=== PATIENT | female | born 1980 | race Caucasian/White ===

== ENCOUNTER 2017-09-12 21:20 | Emergency (ER) | payer MEDICAID ==
[2017-09-12 07:19] VITALS: BMI 33.7
--- NOTE | 2017-09-12 23:43 | OBHP ---
Datetime: 09/12/2017 22:43 IP Adm Impression: Term, intrauterine ; No Active Labor IP Chief Complaint Other: Second opinion IP Adm Impression Other: Previous C/S X2 IP Admit Plan: Observation/Evaluation; Discharge home Admit Comment, IP Provider: 36yo with IUP at 38.1wks( [facility] - 09/25/17) as per Dr Hammer who is he r primary OB practitioner. Pt reports here today c/o intermittent pelvic discomfort and also here to seek further treatment. She was seen earlier in the day at [facility] where she had been eric eduled for a repeat section for a previous c/s X2. According to Dr Hammer, in a phone conver sati, it was detected during the type and screen that Pt had abnormal yuliet antibodies '[place]. An esthesia recommended that a special blood for this antibody be made available before surgery so it ca n be used in the event of the need for emergency transfusion. The surgery was cancelled and the patient was apparently upset about this. Dr Hammer reports ythat she had sat patient down and explained the situation before discharging the patient, asking her to r violeta on 09/14/17, for reevaluation and scheduling. The special blood has also been ordered. Pt reports good movements, said she saw some bleeding after being checked today. TOCO: irregular, Q 8 - 9 FHR- Category 1 SVE: No active bleeding Cx: 0/0/-3 Assessment: IUP at 38wks Previous C- section No Active Labor NST Reactive. Plan: D/c Home F/u with Dr Hammer on Thursday Labor instructions given Presentation-Admit: Vertex FHR - Baseline A Provider: 150 Membranes, Provider: Intact Contraction Comments Provider: irregular Gestation - Est Wks by US: 38.1 EGA AdmitDate IP: 38.1 Vital Signs Provider: Reviewed IP Chief Complaint: Maternal discomfort NICHD Variability Prov Fetus A: Moderate 6-25bpm NICHD Accel Fetus A IP Provider: [id number] FHR Category Provider Fetus A: Category I NICHD Decel Fetus A IP Provider: None Dilatation, Provider: FT Effacement, Provider: 0 Station, Provider: -3
[2017-09-13 11:18] VITALS: BP 107/62; PULSE 79
== END 2017-09-12 23:40 | disposition home or self-care (01) ==
LOC: H.EROB2 21:20
DX: O26.93 Pregnancy related conditions, unspecified, third trimester (principal); R10.2 Pelvic and perineal pain; D75.9 Disease of blood and blood-forming organs, unspecified; Z3A.38 38 weeks gestation of pregnancy